=== PATIENT | male | born 2000 | race Caucasian/White ===

== ENCOUNTER 2022-09-16 16:40 | Emergency (ER) | payer OTHER ==
[~2022-09-16] VITALS: Ht 180.3 cm; Wt 84.5 kg
[2022-09-16] MEDS ORDERED: TAMIFLU75 MG PO (18:27)
== END 2022-09-16 18:58 | disposition home or self-care (01) ==
LOC: FSED 17:06
DX: R50.9 Fever, unspecified (principal); J10.1 Influenza due to other identified influenza virus with other respiratory manifestations
CPT/HCPCS: 71045; 80048; 83518; 85025; 87400; 99283